=== PATIENT | female | born 1975 | race Caucasian/White ===

== ENCOUNTER 2016-08-13 07:14 | Observation (INO) | payer OTHER ==
[2016-08-13] VITALS (10 sets, daily range): BP systolic 101–128; BP diastolic 60–78
[~2016-08-13] VITALS: Ht 165.1 cm; Wt 80.7 kg
[~2016-08-13 07:14] MED LIST: Dexamethasone 20mg/5ml IVP ONE; NKM; Vancomycin 1 GM in D5W 275 ML IVPB ONE
--- NOTE | 2016-08-13 09:00 | Anethesia Preoperative Eval ---
Anesthesia Pre-op PMH/ROS General Date of Evaluation: Aug 13, 2016 Time of Evaluation: 10:11 Anesthesiologist: Bambi ASA Score: ASA 2 Mallampati Score Class I : Soft palate, uvula, fauces, pillars visible Class II: Soft palate, uvula, fauces visible Class III: Soft palate, base of uvula visible Class IV: Only hard plate visible Mallampati Classification: Class II Surgeon: Gonzalo Diagnosis: Neck Pain Surgical Procedure: ACDF C4-5, C6-7 Anesthesia History: none Social History: current smoker, alcohol use - Abuse, drug use - Abuse Family History: no anesthesia problems Allergies: Coded Allergies: AMOXICILLIN (Unverified Allergy, Unknown, 08/13/16) CLAVULANIC ACID (Unverified Allergy, Unknown, 08/13/16) Uncoded Allergies: augmenti (Allergy, Severe, 08/12/16) REDNESS AND HIVES Medications: see eMAR Past Medical History Pulmonary: Reports: other - Smoker Neurologic/Psychiatric: Reports: depression/anxiety PSxH Narrative: TL, Ectopic Anesthesia Pre-op Phys. Exam Physician Exam Last Vital Signs Date Time Temp Pulse Resp B/P Pulse Ox O2 Delivery O2 Flow Rate FiO2 08/13/16 08:02 98.5 66 20 101/63 99 Room Air Constitutional: NAD Neurologic: CN 2-12 intact Cardiovascular: RRR Respiratory: CTA Gastrointestinal: S/NT/ND Airway Exam Mallampati Score: Class II MO: full ROM: limited Teeth: intact Anesthesia Pre-op A/P Labs Urine Test Test 08/13/16 07:25 Urine HCG, Qualitative Negative Risk Assessment & Plan Assessment: ASA 2 Plan: GA, BIS, Glidescope Status Change Before Surgery: No Pre-Antibiotics Dru Grams Ancef IV Given Within 1 Hr of Incision: Yes Time Given: 10:28 Tommy Lacy MD Aug 13, 2016 09:00
[2016-08-13] MEDS ORDERED: HYDROmorphone 1mg/ml Carpuject SUBQ PRN (09:15)
[2016-08-13] MEDS ORDERED: Chloraseptic Spray 20mL Bottle ORAL PRN (09:15)
[2016-08-13] MEDS ORDERED: Zolpidem 5mg tab ORAL PRN (09:15)
[2016-08-13] MEDS ORDERED: oxyCODONE 5mg IR tab ORAL PRN (09:15)
[2016-08-13] MEDS ORDERED: Bupivacaine 0.5% Inj 30 ml vial INJ ONE (09:44)
[2016-08-13] MEDS ORDERED: Thrombin 5000 units TOPIC ONE (09:44)
[2016-08-13] MEDS ORDERED: Vancomycin 1gm inj IVPB ONE (09:44)
[2016-08-13] MEDS ORDERED: Bupivacaine w/Epi 0.5% 30ml Vial INJ ONE (09:44)
[2016-08-13] MEDS ORDERED: Surgicel 4in x 8in TOPIC ONE (09:44)
[2016-08-13] MEDS ORDERED: Bacitracin 50000 Units Vial ONE (09:45)
--- NOTE | 2016-08-13 09:49 | Pre-Procedure Note/Attestation ---
Pre-Procedure Note/Attestation Complete Prior to Procedure Planned Procedure: not applicable Procedure Narrative: C4-5, C6-7 ADR possible ACDF Indications for Procedure Pre-Operative Diagnosis: Postraumatic neck pain Attestation I attest that I discussed the nature of the procedure; its benefits; risks and complications; and alternatives (and the risks and benefits of such alternatives ), prior to the procedure, with the patient (or the patient's legal franchise sales representative). I attest that, if there was a reasonable possibility of needing a blood transfusion, the patient (or the patient's legal franchise sales representative) was given the [facility] standardized written summary, pursuant to the Ezra Edisto Blood Safety Act ([place] Health and Safety Code # 1645, as amended). I attest that I re-evaluated the patient just prior to the surgery and that there has been no change in the patient's H&P, except as documented below: CARLOS JJ Aug 13, 2016 09:49
[2016-08-13] MEDS ORDERED: Sterile Water Irrig 1000ml IRRIG ONE (10:00)
[2016-08-13] MEDS ORDERED: Glycopyrrolate 0.2mg/ml 1ml Vial ONE (10:00)
[2016-08-13] MEDS ORDERED: Propofol 10mg/ml 100ml btl IV ONE (10:00)
[2016-08-13] MEDS ORDERED: Zemuron 50mg/5ml Inj IV ONE (10:00)
[2016-08-13] MEDS ORDERED: Labetalol 5mg/ml 20ml vial IV ONE (10:00)
[2016-08-13] MEDS ORDERED: Dexamethasone 4mg/ml vial ONE (10:00)
[2016-08-13] MEDS ORDERED: Lidocaine 1% Plain 30 ml INJ ONE (10:00)
[2016-08-13] MEDS ORDERED: NS Irrig 1000ml ONE (10:00)
[2016-08-13] MEDS ORDERED: fentaNYL 250mcg/5ml ONE (10:00)
[2016-08-13] MEDS ORDERED: fentaNYL 100 mcg/2 mL IV ONE (10:00)
[2016-08-13] MEDS ORDERED: LR 1000ml ONE (10:00)
[2016-08-13] MEDS ORDERED: Neostigmine 1mg/ml 10ml Inj ONE (10:00)
[2016-08-13] MEDS ORDERED: LR 1000ml 1,000 ML IVLG SCH (10:43)
[2016-08-13] MEDS ORDERED: Labetalol 5mg/ml 20ml vial IV PRN (10:45)
[2016-08-13] MEDS ORDERED: Norco 7.5mg/325mg tab ORAL PRN (10:45)
[2016-08-13] MEDS ORDERED: Meperidine 25mg/ml Inj IV PRN (10:45)
[2016-08-13] MEDS ORDERED: Midazolam 2mg/2ml Inj IVP PRN (10:45)
[2016-08-13] MEDS ORDERED: Oxycodone/Acetaminophen 5-325 ORAL PRN (10:45)
[2016-08-13] MEDS ORDERED: fentaNYL 100 mcg/2 mL IV PRN (10:45)
[2016-08-13] MEDS ORDERED: Ketorolac 60mg Inj IV PRN (10:45)
[2016-08-13] MEDS ORDERED: DiphenhydrAMINE 50mg/ml Inj IVP PRN (10:45)
[2016-08-13] MEDS ORDERED: Hydromorphone 0.5mg/0.5ml inj IVP PRN (10:45)
[2016-08-13] MEDS ORDERED: Norco 5mg/325mg tab ORAL PRN (10:45)
[2016-08-13] MEDS ORDERED: Ketorolac 30mg Inj IV PRN (10:45)
[2016-08-13] MEDS ORDERED: LORazepam Inj 2mg/ml 1ml IV PRN (10:45)
[2016-08-13] MEDS ORDERED: Metoclopramide 10mg/2ml Inj IVP PRN ×2 (10:45→14:00)
[2016-08-13] MEDS ORDERED: Atropine Inj 1mg/10ml Syr IV PRN (10:45)
--- NOTE | 2016-08-13 10:52 | Immediate Post-Op Evaluation ---
Immediate Post-Op Evalulation Immediate Post-Op Evalulation Procedure: ACDF C4-5, C6-7 Date of Evaluation: Aug 13, 2016 Time of Evaluation: 14:15 IV Fluids: 2000 LR Blood Products: 0 Estimated Blood Loss: 50 Urinary Output: 0 Blood Pressure Systolic: 110 Blood Pressure Diastolic: 68 Pulse Rate: 89 Respiratory Rate: 16 O2 Sat by Pulse Oximetry: 100 Temperature (Fahrenheit): 98.2 Pain Score (1-10): 3 Nausea: No Vomiting: No Complications 0 Patient Status: awake, reacts, patent, extubated, none Hydration Status: adequate Dru Grams Ancef IV Given Within 1 Hr of Incision: Yes Time Given: 10:28 Tommy Lacy MD Aug 13, 2016 10:52
[2016-08-13] MEDS ORDERED: Acetaminophen (Non formulary) 100 ML IV ONE (12:00)
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
--- NOTE | 2016-08-13 13:47 | Brief Operative Note ---
Immediate Post Operative Note Operative Note Pre-op Diagnosis: Postraumatic neck pain Procedure: ADR C4-5 Hemivertebrectomy C6, C7 PEEK / Bio Fusion C6-7, correction deformity Plate C6-7 SSEP xray microscope Post-op Diagnosis: same as pre-op Surgeon: Gonzalo Stone And Plate Preparer Apprentice: Gaye MCLEAN Anesthesiologist: Bambi LICEA Anesthesia: general Specimen: none Complications: none Condition: stable Estimated Blood Loss: minimal Drains: none Implant(s) used?: Yes CARLOS JJ Aug 13, 2016 13:47
[2016-08-13] MEDS ORDERED: ceFAZolin sod 1 GM in D5W 55 ML IV SCH (14:00)
[2016-08-13] MEDS: D5 1/2NS 1,000 ML IV SCH (16:29)
[2016-08-13] MEDS: ceFAZolin sod 1 GM in D5W 55 ML IV SCH (18:29)
--- NOTE | 2016-08-13 19:29 | Operative Note - Dictated ---
DATE OF OPERATION: 08/13/2016 ADMITTING/PREOPERATIVE DIAGNOSIS: Posttraumatic discogenic neck pain. POSTOPERATIVE DIAGNOSIS: Posttraumatic discogenic neck pain. SURGEON: Maurilio Sánchez, Ph.D., MD. COMMERCIAL ELECTRICIAN: CARIDAD Brink. ANESTHESIA: General intubation. ANESTHESIOLOGIST: Dr. Lacy. ESTIMATED BLOOD LOSS: Less than 20 mL. COMPLICATIONS: None. POSTOPERATIVE CONDITION: Good/stable. PROCEDURE: 1. C4-C5 artificial disc replacement. 2. C6 jayro vertebrectomy and C7 jayro vertebrectomy. 3. C6-C7 PEEK interbody reconstruction fusion with correction deformity from neutral to lordosis. 4. Anterior internal plate fixation. 5. SSEP monitoring high-power microscopic dissection. 6. Intraoperative x-rays interpreted by surgeon. DESCRIPTION OF PROCEDURE: The patient was brought to the operating room and in the supine position general anesthesia with intubation was induced. IV antibiotics and IV Decadron were administered 30 minutes prior to incision time. After appropriate positioning with fluoroscopic guidance, was undertaken for the correct positioning of the incision. Level was marked and left in a skin fold. Anterior cervical spine was sterilely prepped and draped free in usual sterile fashion. Transverse incision appropriately positioned, was sharply placed the dermis and epidermis. Electrocautery dissection was carried to subcutaneous tissue to the level of the platysmas muscle was identified isolated and transected in line with the incision. Blunt dissection was carried medial to the carotid sheath through the deep cervical pretracheal fascia to the midline between the right and left longus colli muscles. A spinal needle bent at 90 degrees so as to avoid penetration 3 mm to the disc space was placed and cross-table image was obtained under sterile conditions demonstrating the correct level for further dissection. Level was marked. Retractors placed. Diskectomy was performed at the C4-C5 interval to the posterior longitudinal ligament. Posterior longitudinal ligament resected under high-power magnification. No cerebrospinal fluid leakage apparent. SSEP monitoring stable. Appropriately sized artificial disc determined. Appropriate technique utilized with controlling real cuts and placement of the porous ingrowth disc of the appropriate dimensions. Cross-table imaging revealed excellent alignment and position. Wound was irrigated antibiotic-containing saline. Attention was turned to the C6-C7 interval. Anterior osteophyte noted. Collapse of the interspace noted. Deemed unacceptable for artificial disk replacement. Jayro vertebrectomy inferior C6 superior C7 to the posterior longitudinal ligament was undertaken. Interpositional grafting with the appropriate lordotic peek cage with titanium end plate with biomaterial for fusion into position. Fit excellent. SSEP monitoring stable. All traction on the neck removed. Wound irrigated antibiotic-containing saline. No obvious excoriation or laceration of vital structures. FloSeal applied. Reapproximation of platysmas muscle. Reapproximation dermis and epidermis with subcuticular PDS suture followed by surgical strips sterile, bandage and maintained in place with tape. The patient was awakened and extubated in the operating room, and transported to postoperative recovery in good stable condition. Maurilio Sánchez M.D. DR: KELLEE JOB#: [id number] CC:
[2016-08-13] MEDS: Morphine Sulfate 4mg/ml Inj IM PRN (19:38)
--- NOTE | 2016-08-13 20:13 | Cardiology Progress Note ---
Assessment/Plan Assessment/Plan [id number] dictated Objective Last 24 Hour Vital Signs Date Time Temp Pulse Resp B/P Pulse Ox O2 Delivery O2 Flow Rate FiO2 08/13/16 16:00 97.7 79 18 128/71 Nasal Cannula 3.0 08/13/16 14:56 97.6 74 16 117/78 96 Nasal Cannula 3.0 08/13/16 14:45 84 18 120/69 95 Nasal Cannula 3.0 08/13/16 14:35 84 15 109/66 96 Nasal Cannula 3.0 08/13/16 14:25 84 10 109/66 98 Simple Mask 6.0 08/13/16 14:15 85 10 109/60 98 Simple Mask 6.0 08/13/16 14:10 81 10 103/67 98 Simple Mask 6.0 08/13/16 14:05 89 16 100 08/13/16 14:04 98.2 84 11 110/68 99 Simple Mask 6.0 08/13/16 08:02 98.5 66 20 101/63 99 Room Air Laboratory Tests Test 08/13/16 07:25 Urine HCG, Qualitative Negative JORDANA KLINE Aug 13, 2016 20:13
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
[2016-08-14] VITALS: BP 115/70
[2016-08-14] MEDS: Morphine Sulfate 4mg/ml Inj IM PRN (00:50)
[2016-08-14] MEDS: ceFAZolin sod 1 GM in D5W 55 ML IV SCH ×2 (02:10→09:14)
[2016-08-14] MEDS: D5 1/2NS 1,000 ML IV SCH (02:10)
[2016-08-14 04:00] VITALS: BP 136/82
[2016-08-14 08:00] VITALS: BP 134/81
--- NOTE | 2016-08-14 08:35 | Diagnostic Imaging Report ---
Indication: PAIN, intraoperative Technique: Digital intraoperative imaging Comparison: None Findings: Initial image demonstrates a surgical tool projected anterior to the C4-5 disc. Subsequent images document placement of a disc prosthesis at C4-5, and anterior fusion at C6-7 Impression: Intraoperative imaging, as described
--- NOTE | 2016-08-14 09:59 | Progress Note ---
DATE: 08/14/2016 ACUTE PAIN MANAGEMENT PHYSICIAN PROGRESS NOTE SUBJECTIVE: Medication administration record reviewed. Medications include Mylanta, Soma, Cepacol, Catapres, Benadryl, Dilaudid, Reglan, morphine, Zofran, oxycodone, Protonix, Chloraseptic, and Ambien. LABORATORY STUDIES: No interval laboratory studies. PHYSICAL EXAMINATION: VITAL SIGNS: Afebrile. pulse 98, respirations 18, blood pressure 136/80, and saturation 94% on room air. I saw the patient at bedside with her boyfriend after discussing with the overnight nurse. I spent over 60 minutes in consultation. I discussed the case with the surgeon, Dr. Maurilio Sánchez. After her neck surgery, the patient is swallowing, breathing, and phonating within normal limits. She has been ambulating to the restroom without difficulty. She has been advancing her diet and nausea symptoms have abated. The patient is complaining of insomnia and I have recommended [id number] Benadryl once she returns home. The patient has been alternating infrequent doses of intramuscular morphine with oxycodone for adequate analgesia. The patient already has a good supply of oxycodone for home usage. Additionally, the patient's boyfriend will assist the patient in the next several days to assist with activities of daily living. The patient is breathing comfortably. The neck dressing appears clean and dry. With normal vital signs and excellent clinical postoperative appearance, I see no contraindication for discharge trial home today once cleared by the surgeon, Dr. Sánchez. The patient is voiding urine well. Max Loredo M.D. DR: Isael JOB#: [id number] CC:
[2016-08-14 11:08] VITALS: BP 136/82
--- NOTE | 2016-08-14 11:08 | 48 Hour Post Anesthesia Eval ---
Post Anesthesia Evaluation Procedure: ACDF C4-5, C6-7 Date of Evaluation: Aug 14, 2016 Time of Evaluation: 06:50 Blood Pressure Systolic: 136 0: 82 Pulse Rate: 98 Respiratory Rate: 18 Temperature (Fahrenheit): 98.1 O2 Sat by Pulse Oximetry: 94 Airway: patent Nausea: No Vomiting: No Pain Intensity: 0 Hydration Status: adequate Cardiopulmonary Status: at baseline Mental Status/LOC: patient returned to baseline Post-Anesthesia Complications: 0 Follow-up care needed: N/A - further care as per primary team SANCHO CALDERON M.D. Aug 14, 2016 11:08
[2016-08-14] MEDS ORDERED: D5 1/2NS 1000ml IV ONE (12:07)
== END 2016-08-14 12:08 | disposition home or self-care (01) ==
LOC: INTOOBSV 07:14 → SDSOVERFLO 07:14 → 3E 14:59
DX: M54.2 Cervicalgia (principal); M54.12 Radiculopathy, cervical region; G89.18 Other acute postprocedural pain; E66.9 Obesity, unspecified; Z68.30 Body mass index [BMI] 30.0-30.9, adult; F32.9 Major depressive disorder, single episode, unspecified; F41.9 Anxiety disorder, unspecified; Z79.1 Long term (current) use of non-steroidal anti-inflammatories (NSAID); Z88.1 Allergy status to other antibiotic agents; Z88.5 Allergy status to narcotic agent
CPT/HCPCS: 22554; 22853; 22856; 36415; 72040; 76001; 81025; 86850; 86870; 86900; 86901; 87081; 97110; 97116; 97161; 97530; C1713; G0378; G0379; J0690; J1100; J2001; J2250; J2270; J2405; J2704; J2710; J3010; J7120; 94003; 94150; 96360; 96361; 96372; 96374